=== PATIENT | male | born 1970 | race Caucasian/White ===

== ENCOUNTER 2020-08-26 08:32 | Inpatient (IN) | payer BC ==
[2020-08-26 09:35] VITALS: BMI 29.2
[2020-08-26] MEDS ORDERED: IBUPROFEN 400 MG TABLET (FP) PO PRN (10:03)
[2020-08-26] MEDS ORDERED: MAGNESIUM CITRATE 300 ML BOTTLE PO PRN (10:03)
[2020-08-26] MEDS ORDERED: METHOCARBAMOL 500 MG TABLET PO PRN (10:03)
[2020-08-26] MEDS ORDERED: MAG HYDROX/AL HYDROX/SIMETH 30 ML UNIT-DOSE CUP PO PRN (10:03)
[2020-08-26] MEDS ORDERED: MENTHOL/PHENOL 1 EACH UD MM PRN (10:03)
[2020-08-26] MEDS ORDERED: ONDANSETRON *ODT* 4 MG TABLET SL PRN (10:03)
[2020-08-26] MEDS ORDERED: MAGNESIUM HYDROX 2400MG/30ML ORAL SUSPENSION 30 ML CUP PO PRN (10:03)
[2020-08-26] MEDS ORDERED: ACETAMINOPHEN 325 MG TABLET (FP) PO PRN ×2 (10:03)
[2020-08-26] MEDS: amLODIPine BESYLATE 10 MG TABLET (FP) PO SCH (13:15)
[2020-08-26] MEDS: hydrOXYzine PAMOATE 25 MG CAPSULE (FP) PO SCH ×3 (13:15→22:15)
[2020-08-26] MEDS: diazePAM 5 MG TABLET PO SCH ×3 (13:15→22:15)
[2020-08-26] MEDS: diazePAM 5 MG TABLET PO PRN (19:49)
[2020-08-26] MEDS: MELATONIN 5 MG TABLETS PO SCH (22:15)
[2020-08-26] MEDS: THIAMINE HCL 100 MG TABLET (FP) PO SCH (22:15)
[2020-08-27] MEDS: diazePAM 5 MG TABLET PO SCH ×4 (05:17→22:10)
[2020-08-27] MEDS: hydrOXYzine PAMOATE 25 MG CAPSULE (FP) PO SCH ×5 (05:18→22:10)
[2020-08-27] MEDS: diazePAM 5 MG TABLET PO PRN ×2 (08:24→19:57)
[2020-08-27 10:06] LABS: HEMATOCRIT 46.9 % (35.4-49); HEMOGLOBIN 16.3 GM/dL (11.7-16.9); MCH 34.6 pg (25.7-33.7); MCHC 34.7 g/dl (32.0-35.9); MEAN CELL VOLUME 99.7 fl (80-96); MEAN PLT VOLUME 7.7 fl (7.5-11.1); PLATELET COUNT 114 K/MM3 (134-434); RBC 4.71 M/mm3 (4.00-5.60); RDW 15.4 % (11.9-15.9); WHITE BLOOD COUNT 3.7 K/mm3 (4.0-10.0)
[2020-08-27] MEDS: amLODIPine BESYLATE 10 MG TABLET (FP) PO SCH (10:12)
[2020-08-27] MEDS: PRENATAL VITAMINS W/ FOLIC ACID TABLET (FP) PO SCH (10:12)
[2020-08-27 10:55] LABS: ALBUMIN 3.9 g/dl (3.4-5.0); BLOOD UREA NITROGEN 9.1 mg/dL (7-18)
[2020-08-27 10:56] LABS: CALCIUM 8.7 mg/dL (8.5-10.1)
[2020-08-27 10:58] LABS: CREATININE 0.7 mg/dL (0.55-1.3)
[2020-08-27 11:00] LABS: BILIRUBIN,TOTAL 1.8 mg/dL (0.2-1); TOT PROT 7.5 g/dl (6.4-8.2)
[2020-08-27] MEDS: THIAMINE HCL 100 MG TABLET (FP) PO SCH (22:10)
[2020-08-27] MEDS: MELATONIN 5 MG TABLETS PO SCH (22:10)
[2020-08-28] MEDS: diazePAM 5 MG TABLET PO SCH ×3 (05:33→22:16)
[2020-08-28] MEDS: hydrOXYzine PAMOATE 25 MG CAPSULE (FP) PO SCH ×5 (05:33→22:16)
[2020-08-28] MEDS: amLODIPine BESYLATE 10 MG TABLET (FP) PO SCH (09:48)
[2020-08-28] MEDS: PRENATAL VITAMINS W/ FOLIC ACID TABLET (FP) PO SCH (09:48)
[2020-08-28 11:40] LABS: CALCIUM 9.9 mg/dL (8.5-10.1); PROTHROMBIN TIME (PATIENT) 12.3 SEC (9.7-13.0)
[2020-08-28 11:41] LABS: ALBUMIN 4.2 g/dl (3.4-5.0); BLOOD UREA NITROGEN 12.1 mg/dL (7-18)
[2020-08-28 11:44] LABS: CREATININE 0.7 mg/dL (0.55-1.3)
[2020-08-28 11:46] LABS: BILIRUBIN,TOTAL 1.6 mg/dL (0.2-1)
[2020-08-28] MEDS: BISMUTH SUBSALICYLATE 524 MG/30 ML PO PRN ×2 (14:14→17:38)
[2020-08-28] MEDS: MELATONIN 5 MG TABLETS PO SCH (22:16)
[2020-08-28] MEDS: THIAMINE HCL 100 MG TABLET (FP) PO SCH (22:16)
[2020-08-29] MEDS: hydrOXYzine PAMOATE 25 MG CAPSULE (FP) PO SCH ×5 (05:18→22:08)
[2020-08-29] MEDS: diazePAM 5 MG TABLET PO SCH ×2 (05:19→17:40)
[2020-08-29] MEDS: diazePAM 5 MG TABLET PO PRN ×2 (08:51→13:51)
[2020-08-29] MEDS: amLODIPine BESYLATE 10 MG TABLET (FP) PO SCH (10:02)
[2020-08-29] MEDS: PRENATAL VITAMINS W/ FOLIC ACID TABLET (FP) PO SCH (10:02)
[2020-08-29] MEDS: MELATONIN 5 MG TABLETS PO SCH (22:08)
[2020-08-29] MEDS: THIAMINE HCL 100 MG TABLET (FP) PO SCH (22:08)
[2020-08-30] MEDS: hydrOXYzine PAMOATE 25 MG CAPSULE (FP) PO SCH (05:17)
[2020-08-30] MEDS ORDERED: diazePAM 5 MG TABLET PO ONE (06:00)
[2020-08-30 08:48] VITALS: BP 114/72; PULSE 106; TEMP 96.8
[2020-08-30 11:07] LABS: SARS-CoV-2 NAA Not Detected (Not Detected)
== END 2020-08-30 08:45 | disposition home or self-care (01) | DRG 775 ==
LOC: YASAS 08:32 → Y3N 11:45
PROVIDERS: ADMIT Allergy & Immunology; ATTEND Allergy & Immunology
PROC: HZ2ZZZZ Detoxification Services for Substance Abuse Treatment (ICD-10-PCS; principal; 2020-08-26)
DX: F10.230 Alcohol dependence with withdrawal, uncomplicated (principal); G40.509 Epileptic seizures related to external causes, not intractable, without status epilepticus; I10 Essential (primary) hypertension; K21.9 Gastro-esophageal reflux disease without esophagitis; M54.5 Low back pain; G89.29 Other chronic pain; Z87.891 Personal history of nicotine dependence; Z99.89 Dependence on other enabling machines and devices
CPT/HCPCS: 36415; 80053; 85027; 85610; 86780; C9803; U0003; U0005

== ENCOUNTER 2020-10-05 15:22 | Inpatient (IN) | payer BC ==
[2020-10-05] MEDS ORDERED: LORazepam 2 MG TABLET PO ONE (15:53)
[2020-10-05 15:57] VITALS: BMI 30.8
[2020-10-05] MEDS ORDERED: MAGNESIUM HYDROX 2400MG/30ML ORAL SUSPENSION 30 ML CUP PO PRN (16:18)
[2020-10-05] MEDS ORDERED: MENTHOL/PHENOL 1 EACH UD MM PRN (16:18)
[2020-10-05] MEDS ORDERED: BISMUTH SUBSALICYLATE 524 MG/30 ML PO PRN (16:18)
[2020-10-05] MEDS ORDERED: MAG HYDROX/AL HYDROX/SIMETH 30 ML UNIT-DOSE CUP PO PRN (16:18)
[2020-10-05] MEDS ORDERED: NICOTINE POLACRILEX 2 MG GUM BUC PRN (16:18)
[2020-10-05] MEDS ORDERED: ACETAMINOPHEN 325 MG TABLET (FP) PO PRN ×2 (16:18)
[2020-10-05] MEDS ORDERED: IBUPROFEN 400 MG TABLET (FP) PO PRN (16:18)
[2020-10-05] MEDS ORDERED: LORazepam 1 MG TABLET PO PRN (16:18)
[2020-10-05] MEDS ORDERED: MAGNESIUM CITRATE 300 ML BOTTLE PO PRN (16:18)
[2020-10-05] MEDS ORDERED: ONDANSETRON *ODT* 4 MG TABLET SL PRN (16:18)
[2020-10-05] MEDS: METHOCARBAMOL 500 MG TABLET PO PRN (17:58)
[2020-10-05] MEDS: amLODIPine BESYLATE 5 MG TABLET (FP) PO SCH (17:59)
[2020-10-05] MEDS: hydrOXYzine PAMOATE 25 MG CAPSULE (FP) PO SCH ×2 (18:01→22:42)
[2020-10-05] MEDS: LORazepam 2 MG TABLET PO SCH ×6 (22:41→23:55)
[2020-10-05] MEDS: MELATONIN 5 MG TABLETS PO SCH (22:42)
[2020-10-05] MEDS: THIAMINE HCL 100 MG TABLET (FP) PO SCH (22:42)
[2020-10-06] MEDS: hydrOXYzine PAMOATE 25 MG CAPSULE (FP) PO SCH ×5 (06:02→22:17)
[2020-10-06] MEDS: LORazepam 2 MG TABLET PO SCH ×4 (06:03→22:17)
[2020-10-06 09:00] LABS: HEMATOCRIT 47.8 % (35.4-49); HEMOGLOBIN 16.5 GM/dL (11.7-16.9); MCHC 34.5 g/dl (32.0-35.9); MEAN CELL VOLUME 98.5 fl (80-96); MEAN PLT VOLUME 8.3 fl (7.5-11.1); PLATELET COUNT 84 10^3/uL (134-434); RBC 4.85 M/mm3 (4.00-5.60); RDW 15.2 % (11.9-15.9); WHITE BLOOD COUNT 4.4 K/mm3 (4.0-10.0)
[2020-10-06 09:22] LABS: CALCIUM 9.2 mg/dL (8.5-10.1)
[2020-10-06 09:23] LABS: BLOOD UREA NITROGEN 10.5 mg/dL (7-18)
[2020-10-06 09:26] LABS: CREATININE 0.7 mg/dL (0.55-1.3)
[2020-10-06 09:27] LABS: BILIRUBIN,TOTAL 2.5 mg/dL (0.2-1); TOT PROT 7.9 g/dl (6.4-8.2)
[2020-10-06] MEDS: TETRAHYDROZOLINE HCL EYE DROPS OD PRN (11:07)
[2020-10-06] MEDS: METHOCARBAMOL 500 MG TABLET PO PRN ×2 (11:07→22:19)
[2020-10-06] MEDS: amLODIPine BESYLATE 5 MG TABLET (FP) PO SCH (11:07)
[2020-10-06] MEDS: PRENATAL VITAMINS W/ FOLIC ACID TABLET (FP) PO SCH (11:07)
[2020-10-06] MEDS: MELATONIN 5 MG TABLETS PO SCH (22:17)
[2020-10-06] MEDS: THIAMINE HCL 100 MG TABLET (FP) PO SCH (22:17)
[2020-10-07] MEDS: LORazepam 1 MG TABLET PO SCH ×4 (05:20→22:19)
[2020-10-07] MEDS: hydrOXYzine PAMOATE 25 MG CAPSULE (FP) PO SCH ×5 (05:20→22:20)
[2020-10-07] MEDS: PRENATAL VITAMINS W/ FOLIC ACID TABLET (FP) PO SCH (10:10)
[2020-10-07] MEDS: amLODIPine BESYLATE 5 MG TABLET (FP) PO SCH (10:10)
[2020-10-07] MEDS: TETRAHYDROZOLINE HCL EYE DROPS OD PRN (10:12)
[2020-10-07] MEDS: MELATONIN 5 MG TABLETS PO SCH (22:20)
[2020-10-07] MEDS: THIAMINE HCL 100 MG TABLET (FP) PO SCH (22:20)
[2020-10-08] MEDS ORDERED: LORazepam 0.5 MG TABLET PO PRN
[2020-10-08] MEDS: LORazepam 0.5 MG TABLET PO SCH ×4 (05:45→22:44)
[2020-10-08] MEDS: hydrOXYzine PAMOATE 25 MG CAPSULE (FP) PO SCH ×2 (05:45→10:25)
[2020-10-08] MEDS: amLODIPine BESYLATE 5 MG TABLET (FP) PO SCH (10:25)
[2020-10-08] MEDS: PRENATAL VITAMINS W/ FOLIC ACID TABLET (FP) PO SCH (10:25)
[2020-10-08] MEDS: TETRAHYDROZOLINE HCL EYE DROPS OD PRN ×2 (10:27→17:57)
[2020-10-08] MEDS ORDERED: hydrOXYzine PAMOATE 25 MG CAPSULE (FP) PO PRN (10:35)
[2020-10-08] MEDS: MELATONIN 5 MG TABLETS PO SCH (22:43)
[2020-10-08] MEDS: THIAMINE HCL 100 MG TABLET (FP) PO SCH (22:44)
[2020-10-09] MEDS ORDERED: LORazepam 0.5 MG TABLET PO ONE (05:00)
[2020-10-09 09:54] VITALS: BP 135/87; PULSE 113; TEMP 96.6
== END 2020-10-09 09:23 | disposition home or self-care (01) | DRG 775 ==
LOC: YASAS 15:22 → Y3N 16:30
PROVIDERS: ADMIT Allergy & Immunology; ATTEND Allergy & Immunology
PROC: HZ2ZZZZ Detoxification Services for Substance Abuse Treatment (ICD-10-PCS; principal; 2020-10-05)
DX: F10.230 Alcohol dependence with withdrawal, uncomplicated (principal); I10 Essential (primary) hypertension; M54.5 Low back pain; G89.29 Other chronic pain; R56.9 Unspecified convulsions; R74.8 Abnormal levels of other serum enzymes; Z87.891 Personal history of nicotine dependence
CPT/HCPCS: 36415; 80053; 85027; 86780; 93005; 93010; C9803; U0003; U0005